=== PATIENT | female | born 1965 | race Caucasian/White ===

== ENCOUNTER 2020-03-19 16:27 | Outpatient (REF) | payer BC, SELFPAY ==
--- NOTE | 2020-03-19 16:31 | MM_ITS ---
EXAMINATION: MM SCREENING DIGITAL BREAST TOMOSYNTHESIS, BILATERAL CLINICAL INFORMATION: Screening. Asymptomatic. Family history breast cancer (sister). The lifetime risk of breast cancer based on the Tyrer-Cuzick Model is 5%. COMPARISON: Mammography: 06/17/2014, 06/03/2007 TECHNIQUE: Digital breast tomosynthesis is performed in both the craniocaudal and mediolateral oblique views along with computer-aided detection (CAD). Synthesized 2D images are generated from the tomosynthesis. FINDINGS: There are scattered areas of fibroglandular density (ACR BI-RADS breast composition Category b). There are no significant masses, abnormal calcifications, or other abnormalities. There is fine fibronodular parenchymal pattern similar to prior studies. Again, there are scattered punctate calcifications in each breast. No developing density. No significant changes. MM/MM tomosynthesis screening BI IMPRESSION: No significant changes from prior study. ASSESSMENT: BI-RADS 2: Benign RECOMMENDATION: Routine annual mammography screening. This patient's information was entered into a reminder system with a target due date for their next mammogram.
== END 2020-03-19 16:28 | disposition home or self-care (01) ==
LOC: HO.MAMMO 16:27
PROVIDERS: PCP Internal Medicine; Visit Provider Internal Medicine
DX: Z12.31 Encounter for screening mammogram for malignant neoplasm of breast (principal)
CPT/HCPCS: 77063; 77067

== ENCOUNTER → 2021-03-24 10:54 | Outpatient (BNVA) | payer BC, SELFPAY | PROVIDERS: PCP Internal Medicine; Visit Provider Advanced Practice Midwife ==

== ENCOUNTER 2022-04-18 12:08 | Outpatient (REF) | payer BC, SELFPAY ==
--- NOTE | ~2022-04-18 | XR_ITS ---
EXAMINATION: XR SHOULDER, RIGHT CLINICAL INFORMATION: Shoulder pain COMPARISON: None TECHNIQUE: AP external rotation, Grashey, scapular Y, and axillary views of the right shoulder. FINDINGS: No acute fracture or dislocation. Small marginal osteophytes along the glenoid. Alignment of the chromic clavicular joint intact. Soft tissues unremarkable. XR/XR shoulder RT min 2V IMPRESSION: No acute findings. Small marginal osteophytes along the glenohumeral joint
== END 2022-04-18 12:09 | disposition home or self-care (01) ==
LOC: HO.XRAY 12:08
PROVIDERS: PCP Internal Medicine; Visit Provider Internal Medicine
DX: M25.511 Pain in right shoulder (principal)
CPT/HCPCS: 73030

== ENCOUNTER 2022-04-21 06:15 | Outpatient (REF) | payer BC, SELFPAY ==
[2022-04-21 06:19] LABS: MANUAL DIFF FLAG NO
[2022-04-21 07:41] LABS: Basophils Percent Auto 0.5 % (0-2); Eosinophils Absolute Auto 0.1 X10*3/uL (0.0-0.4); Eosinophils Percent Auto 2.1 % (0-4); Hematocrit 41.1 % (37.0-47.0); Hemoglobin 13.6 g/dl (12.0-16.0); Imm Gran Abs Auto 0.02 X10*3/uL (0.00-0.03); Imm Gran Pct Auto 0.3 % (0.0-0.4); Lymphocytes Absolute Auto 1.9 X10*3/uL (1.2-4.9); Lymphocytes Percent Auto 31.6 % (20-40); Mean Corpuscular HGB Conc 33.1 g/dl (31.0-35.0); Mean Corpuscular Volume 93.6 fL (80.0-98.0); Mean Platelet Volume 10.2 fL (9.4-12.3); Monocytes Absolute Auto 0.6 X10*3/uL (0.1-1.2); Monocytes Percent Auto 9.3 % (2-11); Neutrophils Absolute Auto 3.4 x10*3/uL (2.0-8.3); Neutrophils Percent Auto 56.2 % (45-73); Platelet Count 256 X10*3/uL (160-400); Red Blood Count 4.39 X10*6/uL (4.20-5.50); Red Cell Distribution Width 12.8 % (11.0-16.0); White Blood Count 6.1 X10*3/uL (4.8-10.8)
[2022-04-21 08:08] LABS: Alanine Aminotransferase 37 U/L (0-31); Albumin Level 4.2 g/dL (3.5-5.0); Alkaline Phosphatase 50 U/L (39-117); Anion Gap 11 (12-20); Aspartate Amino Transferase 27 U/L (5-31); Bilirubin Total 0.5 mg/dL (0.0-1.0); Blood Urea Nitrogen 11 mg/dL (9-16); Calcium 9.6 mg/dL (8.4-10.2); Carbon Dioxide 28 mmol/L (22-29); Chloride 102 mmol/L (96-108); Cholesterol 218 mg/dL; Estimated Glomerular Filt Rate > 60; Glucose Fasting 86 mg/dL (60-99); HDL Cholesterol 65 mg/dL; LDL Cholesterol Calculated 141 mg/dl; Sodium 137 mmol/L (135-145); Total Protein 6.9 g/dL (6.5-8.0); Triglycerides 62 mg/dL
== END 2022-04-21 06:16 | disposition home or self-care (01) ==
LOC: HO.LAB 06:15
PROVIDERS: PCP Internal Medicine; Visit Provider Internal Medicine
DX: Z00.00 Encounter for general adult medical examination without abnormal findings (principal); M25.511 Pain in right shoulder
CPT/HCPCS: 36415; 80053; 80061; 85025

== ENCOUNTER 2022-05-11 08:30 | Outpatient (REF) | payer BC, SELFPAY ==
--- NOTE | ~2022-05-11 | MM_ITS ---
EXAMINATION: BONE DENSITOMETRY CLINICAL INDICATION: Menopause. COMPARISON: This is the patient's baseline examination. TECHNIQUE: Using a Volley DXA System (software version: 13.1) manufactured by [employer], dual-energy x-ray absorptiometry was performed of the lumbar spine and left hip. The images are of good technical quality. Summary results are attached. FINDINGS: AP SPINE L1-L4: BMD 0.892 g/cm2, Z-score -0.9, T-score -2.4, osteopenia. LEFT FEMUR, NECK: BMD 0.672 g/cm2, Z-score -1.2, T-score -2.6, osteoporosis. LEFT FEMUR, TOTAL: BMD 0.730 g/cm2, Z-score -1.1, T-score -2.2, osteopenia. IDENTIFIED RISK FACTORS: Menopause. HISTORY OF FRACTURE: None listed. MEDICATIONS: None listed. MM/XR DEXA axial skeleton IMPRESSION: 1. DIAGNOSIS: Osteoporosis based on the lowest T-score value of -2.6 in the femoral neck applying World Health Organization criteria. 2. 10-YEAR FRACTURE RISK PREDICTION, FRAX: According to the guidelines, FRAX calculation should only be performed on patients in the osteopenia bone density category. Therefore, FRAX was not performed on this patient. 3. Treatment Recommendations: NOF guidelines recommend consideration for treatment in postmenopausal women and men age 50 and older presenting with the following: -A hip or vertebral (clinical or morphometric) fracture. -T-score less than or equal to -2.5 at the femoral neck or spine after appropriate evaluation to exclude secondary causes. -Low bone mass at the hip or spine and a 10-year fracture probability by FRAX of greater than or equal to 3% for hip fracture or greater than or equal to 20% for major osteoporotic fracture based on the [place] adapted WHO algorithm. 4. Other Recommendations: All treatment decisions require clinical judgment and consideration of individual patient factors, including patient preferences, comorbidities, previous drug use, risk factors not captured in the FRAX model (e.g. frailty, falls, vitamin D deficiency, increased bone turnover, interval significant decline in bone density) and possible under or overestimation of fracture risk by FRAX. Additional medical evaluation for secondary cause of low bone mineral density may be appropriate. FUTURE SCAN RECOMMENDATION: People with diagnosed cases of osteoporosis or at high risk for fracture should have regular bone mineral density tests. For patients eligible for Medicare, routine testing is allowed once every 2 years. The testing frequency can be increased to one year for patients who have rapidly progressing disease, those who are receiving or discontinuing medical therapy to restore bone mass, or have additional risk factors.
== END 2022-05-11 08:31 | disposition home or self-care (01) ==
LOC: HO.MAMMO 08:30
PROVIDERS: PCP Internal Medicine; Visit Provider Internal Medicine
DX: Z12.31 Encounter for screening mammogram for malignant neoplasm of breast (principal); Z13.820 Encounter for screening for osteoporosis; Z78.0 Asymptomatic menopausal state
CPT/HCPCS: 77063; 77067; 77080

== ENCOUNTER → 2022-06-06 09:16 | Outpatient (BNVA) | payer BC, SELFPAY | PROVIDERS: PCP Internal Medicine; Visit Provider Physician Assistant | DX: M75.101 Unspecified rotator cuff tear or rupture of right shoulder, not specified as traumatic (principal) ==

== ENCOUNTER 2022-07-26 10:55 | Outpatient (RCR) | payer BC, SELFPAY ==
--- NOTE | 2022-07-26 12:05 | MHC.PT.EP ---
[facility] [place] Office [place] Office [place] Office [address] [phone] F: [phone] F: [phone] F: [phone] F: [phone] Physical Therapy Plan of Care Date of Evaluation: Date of Surgery: Diagnosis: Pain in R shoulder Assessment: Patient is a 57 year old R handed female who presents with s/s consistent with R shoulder pain. 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 Patient past medical history is otherwise unremarkable. Current impairments include pain, posture, ROM, strength, activity tolerance and functional mobility. Functional limitations include decreased ability to reach, lift, carry, pain, push, pull and sleep. Patient is motivated with good rehab potential. Skilled PT will address impairments and functional limitations in order to achieve goals. Frequency and Duration: The patient will be seen 1x/week for 5 weeks Short Term Goals: I with HEP - 2 weeks AROM flexion and scaption 120 - 3 weeks Normal Scapulohumeral rhythm - 3 weeks Normal Scapulothoracic mobility - 3 weeks Snf Goals: AROM flexion and scaption 140 - 5 weeks Strength 4+/5 - 5 weeks Restore PLOF pain free - 5 weeks Pain free sleep - 5 weeks Treatment Plan: Modalities to reduce pain, spasms and effusion. Manual therapy to restore motion and function. Therapeutic exercise to improve strength and flexibility. Neuromuscular re-education for posture and balance. Therapeutic activities to return to functional activities of daily living. Electronically signed by: Robson Arnold PT Please sign and return to therapist. Thank you for your referral.
--- NOTE | 2022-10-31 07:14 | MHC.PT.DC ---
[facility] [place] Office [place] Office [place] Office [address] Vidal 140 [facility] [phone] F: [phone] F: [phone] F: [phone] F: [phone] Physical Therapy Discharge Report Diagnosis: Pain in R shoulder Date of Surgery: Date of Evaluation: 07/26/22 Date of Discharge: 08/02/22 Treatments to Date: 1 Cancellations to Date: No Shows to Date: Discharge Status: Patient Elected to Stop Discharge Summary: Patient is a 57 year old R handed female who presents with s/s consistent with R shoulder pain. 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 Patient past medical history is otherwise unremarkable. Current impairments include pain, posture, ROM, strength, activity tolerance and functional mobility. Functional limitations include decreased ability to reach, lift, carry, pain, push, pull and sleep. Patient is motivated with good rehab potential. Skilled PT will address impairments and functional limitations in order to achieve goals. Electronically signed by: Robson Arnold, PT Please sign and return to therapist. Thank you for your referral.
== END 2022-10-31 07:14 | disposition home or self-care (01) ==
LOC: HO.PTCHIC 10:55
PROVIDERS: PCP Internal Medicine; Visit Provider Physician Assistant
DX: M75.101 Unspecified rotator cuff tear or rupture of right shoulder, not specified as traumatic (principal)
CPT/HCPCS: 97110; 97161

== ENCOUNTER 2022-08-08 14:41 | Outpatient (REF) | payer BC, SELFPAY ==
[2022-08-08 14:50] LABS: MANUAL DIFF FLAG NO
[2022-08-08 15:11] LABS: Basophils Percent Auto 0.5 % (0-2); Eosinophils Absolute Auto 0.1 X10*3/uL (0.0-0.4); Eosinophils Percent Auto 0.9 % (0-4); Hematocrit 43.1 % (37.0-47.0); Hemoglobin 14.4 g/dl (12.0-16.0); Imm Gran Abs Auto 0.01 X10*3/uL (0.00-0.03); Imm Gran Pct Auto 0.2 % (0.0-0.4); Lymphocytes Absolute Auto 1.7 X10*3/uL (1.2-4.9); Lymphocytes Percent Auto 26.2 % (20-40); Mean Corpuscular HGB Conc 33.4 g/dl (31.0-35.0); Mean Corpuscular Volume 92.7 fL (80.0-98.0); Mean Platelet Volume 10.2 fL (9.4-12.3); Monocytes Absolute Auto 0.5 X10*3/uL (0.1-1.2); Monocytes Percent Auto 7.3 % (2-11); Neutrophils Absolute Auto 4.2 x10*3/uL (2.0-8.3); Neutrophils Percent Auto 64.9 % (45-73); Platelet Count 275 X10*3/uL (160-400); Red Blood Count 4.65 X10*6/uL (4.20-5.50); Red Cell Distribution Width 12.7 % (11.0-16.0); White Blood Count 6.4 X10*3/uL (4.8-10.8)
[2022-08-08 15:46] LABS: Alanine Aminotransferase 30 U/L (0-31); Albumin Level 4.5 g/dL (3.5-5.0); Alkaline Phosphatase 57 U/L (39-117); Aspartate Amino Transferase 24 U/L (5-31); Bilirubin Direct 0.2 mg/dL (0.0-0.5); Bilirubin Total 0.5 mg/dL (0.0-1.0); C Reactive Protein 0.26 mg/dL (< or = 0.50); Lipase 37 U/L (8-78); Total Protein 7.5 g/dL (6.5-8.0)
== END 2022-08-08 14:42 | disposition home or self-care (01) ==
LOC: HO.LAB 14:41
PROVIDERS: PCP Internal Medicine; Visit Provider Internal Medicine
DX: R10.9 Unspecified abdominal pain (principal); K90.9 Intestinal malabsorption, unspecified
CPT/HCPCS: 36415; 80076; 83690; 85025; 86140

== ENCOUNTER 2022-08-11 13:10 | Outpatient (REF) | payer BC, SELFPAY ==
--- NOTE | ~2022-08-11 | CT_ITS ---
EXAMINATION: CT ABDOMEN AND PELVIS WITHOUT CONTRAST CLINICAL INFORMATION: Steatorrhea, epigastric pain. COMPARISON: CT abdomen/pelvis 11/14/2013. TECHNIQUE: Multidetector volumetric imaging was performed from the superior aspect of the liver through the pubic symphysis. Sagittal and coronal reformatted images were obtained on the technologist's workstation. This CT examination was performed using dose optimization techniques as appropriate, variously including the following: *Automated exposure control *Adjustment of mA and/or kV according to patient size (this includes techniques or standardized protocols for targeted exams where dose is matched to indication/reason for exam; i.e. extremities or head) *Use of iterative reconstruction technique DLP: 300 mGy-cm FINDINGS: LUNG BASES: No focal consolidation or pleural effusion. LIVER, GALLBLADDER, AND BILIARY TREE: The liver measures 17 cm craniocaudally and demonstrates decreased attenuation suggesting hepatic steatosis. No discrete focal liver lesions are noted in this limited noncontrast examination. Normal appearance of the gallbladder. No biliary ductal dilatation. PANCREAS: Limited noncontrast examination without discrete abnormalities. SPLEEN: Limited noncontrast examination without discrete abnormalities. ADRENAL GLANDS: No adrenal nodule or mass. KIDNEYS AND URETERS: Limited noncontrast examination. There is mild bilateral hydroureteronephrosis up to the level of the uterus. No nephrolithiasis. A couple of water density cortical cysts are noted bilaterally, for which no imaging follow-up is recommended. No perinephric fat stranding. BLADDER: Displaced anteriorly by enlarged uterus. No significant perivesical fat stranding or intraluminal calculi. GASTROINTESTINAL TRACT: Nonspecific gastric distention with heterogeneous debris. No abnormally dilated loops of the small bowel. No pericolonic inflammatory changes to suspect acute colitis or diverticulitis. No evidence of bowel obstruction. The appendix is dilated measuring up to 0.9 cm in diameter but with no significant surrounding inflammatory changes. No internal calcifications or appendicoliths are noted. ABDOMINAL WALL: No significant hernia is appreciated. LYMPH NODES: Limited noncontrast examination. No pathologically enlarged lymph nodes. VASCULAR: Limited noncontrast examination, abdominal aorta is normal in caliber. PELVIC VISCERA: Abnormal appearance of the uterus which is enlarged with loss of differentiation between the endometrial cavity, junctional zone and myometrium. The ovaries are not well delineated. No free fluid. OSSEOUS STRUCTURES: No acute or aggressive appearing osseous abnormalities. CT/CT abdomen pelvis wo IV con IMPRESSION: Abnormal appearance of the uterus which is enlarged with loss of definition of the different tissues, suggesting replacement by an infiltrative disease. Recommend correlation with a pelvic MRI with and without IV contrast, malignancy is not excluded. There is mild bilateral hydronephrosis transitioning at the level of the uterus, likely secondary to mass effect. The appendix is mildly dilated but with no significant surrounding fat stranding or free fluid; differentials include early acute appendicitis, chronic appendicitis or less likely a mucinous tumor in the absence of significant dilatation or associated calcifications. Hepatic steatosis. Nonspecific gastric distention, possibly related with postprandial state, other differentials include gastroparesis and gastric outlet obstruction, correlate clinically. The report will be called to the ordering clinician by a [place] Radiology Physician Ornamental Machine Operator.
== END 2022-08-11 13:11 | disposition home or self-care (01) ==
LOC: HO.CT 13:10
PROVIDERS: Visit Provider Internal Medicine
DX: K90.3 Pancreatic steatorrhea (principal); R10.13 Epigastric pain
CPT/HCPCS: 74176

== ENCOUNTER 2023-05-31 10:13 | Emergency (ER) | payer BC, SELFPAY ==
[2023-05-31 10:18] VITALS: BP 154/74; PULSE 73; RESP 19; TEMP 36.6; O2SAT 100; BMI 21.9
[2023-05-31 10:37] LABS: MANUAL DIFF FLAG NO
[2023-05-31 10:40] LABS: Basophils Percent Auto 0.4 % (0-2); Eosinophils Absolute Auto 0.1 X10*3/uL (0.0-0.4); Eosinophils Percent Auto 1.7 % (0-4); Hematocrit 41.2 % (37.0-47.0); Hemoglobin 13.9 g/dl (12.0-16.0); Imm Gran Abs Auto 0.01 X10*3/uL (0.00-0.03); Imm Gran Pct Auto 0.2 % (0.0-0.4); Lymphocytes Absolute Auto 1.5 X10*3/uL (1.2-4.9); Lymphocytes Percent Auto 27.6 % (20-40); Mean Corpuscular HGB Conc 33.7 g/dl (31.0-35.0); Mean Corpuscular Hemoglobin 31.5 pg (27.0-33.0); Mean Corpuscular Volume 93.4 fL (80.0-98.0); Mean Platelet Volume 9.5 fL (9.4-12.3); Monocytes Absolute Auto 0.5 X10*3/uL (0.1-1.2); Monocytes Percent Auto 9.4 % (2-11); Neutrophils Absolute Auto 3.3 x10*3/uL (2.0-8.3); Neutrophils Percent Auto 60.7 % (45-73); Platelet Count 255 X10*3/uL (160-400); Red Blood Count 4.41 X10*6/uL (4.20-5.50); Red Cell Distribution Width 12.9 % (11.0-16.0); White Blood Count 5.4 X10*3/uL (4.8-10.8)
[2023-05-31 10:55] LABS: Anion Gap 12 (12-20); Blood Urea Nitrogen 9 mg/dL (9-16); Calcium 9.1 mg/dL (8.4-10.2); Carbon Dioxide 28 mmol/L (22-29); Chloride 102 mmol/L (96-108); Estimated Glomerular Filt Rate > 60; Glucose Random 108 mg/dL (60-115); Potassium 4.2 mmol/L (3.3-5.1); Sodium 138 mmol/L (135-145)
--- NOTE | 2023-05-31 12:01 | ED_ITS ---
HPI - General Adult General Chief complaint: General Medical Stated complaint: lightheaded shaking Time Seen by Provider: 05/31/23 11:40 Source: patient and family () Mode of arrival: ambulatory Limitations: no limitations History of Present Illness HPI narrative: 58 year old female with no significant pmhx presents to the ED today for evaluation of facial numbness and tingling in finger tips beginning acutely this morning. Reports waking up with a headache at 0700 this morning. A short while later began to have numbness/tingling to bilateral hands. Endorses feeling shaky inside. Denies hyperventilating. Admits she felt anxious however has never had an anxiety attack before, prompting her to come to the ED for further evaluation. States her headache has improved with Motrin. Her symptoms have completely resolved. Upon being triaged and seeing that her vitals were wnl, she states she wanted to leave the ED as she was no longer symptomatic however agreed to stay for evaluation. She has no complaints at present. Denies fever, headache, dizziness, vision changes, chest pain, SOB, dyspnea, n/v. Related Data Home Medications Medication Instructions Recorded Confirmed No Known Home Meds 03/24/21 03/24/21 Allergies Allergy/AdvReac Type Severity Reaction Status Date / Time No Known Allergies Allergy Verified 05/31/23 10:15 Review of Systems 2 Review of Systems: Constitutional: No fever, chills, fatigue, night sweats, weight changes ENT/Mouth: No ear pain, hearing loss, nasal congestion, sinus pain, rhinorrhea, sore throat Eyes: No eye pain, swelling, redness, vision changes, discharge Cardio: No chest pain, palpitations, LANDON, orthopnea, peripheral edema Pulm: No SOB, cough, sputum, wheezing, dyspnea, hemoptysis GI: No nausea, vomiting, hematemesis, abdominal pain, diarrhea, constipation, hematochezia, melena : No irregular bleeding, dysuria, frequency, urgency, hesitancy, hematuria, flank pain, urinary flow changes, urinary incontinence or retention MSK: No back pain, neck pain, joint pain, myalgias Skin: No lesions, rashes Neuro: No weakness, numbness, paresthesias, LOC, dizziness, headache All other systems reviewed and are negative. [facility] Past Medical History Attestation statement: The following information was validated with the patient. Source: old records reviewed and nursing notes reviewed Onset Date is defined in the Problem List Problems that require an onset date and time if occurred within 24 hrs of arrival to the ED Aortic Dissection and Rupture; Neurologic impairment; Cardiopulmonary Arrest; Endotracheal Intubation; Insertion or Replacement of Mechanical Circulatory Assist Device Medical History Uterine fibroid Raynaud disease Surgical History Hx of tonsillectomy Family History Family History Father Hodgkin disease Mother HTN (hypertension) Brother Diabetes Sister Breast cancer Social History Social History Household Members: Spouse Housing: Condominium Alcohol intake: never Patient Tobacco Use Status: Never used Tobacco Advance Directives: No Advance Directives Information Provided: Yes Current occupational status: employed Current occupation: Artist / right hand dominant Sexual orientation: Straight/Heterosexual Gender identity: Female Physical Exam ED Vital Signs: Vital Signs - 24 hr 05/31/23 10:18 05/31/23 12:12 Temperature 98 F 98.2 F Pulse Rate 73 64 Respiratory Rate 19 18 Blood Pressure 154/74 H 103/75 Pulse Oximetry 100 100 Oxygen Delivery Method Room Air Room Air BMI result Body Mass Index 21.9 Vital signs stable Const General: cooperative, healthy appearing, comfortable, no acute distress, alert and awake Nutritional Appearance: average body habitus Orientation/consciousness: patient oriented x3 Limitations: no limitations [facility] Head: Yes normal to inspection and No Acrocyanosis present Ears: hearing grossly normal bilaterally Eyes General: appearance normal, both eyes and all related structures Conjunctivae: conjunctivae normal Sclerae: sclerae normal Pupils: Equal, round and reactive pupils present Neck Neck: Yes normal visual inspection Chest Chest palpation & inspection: normal inspection of the chest Resp Effort & Inspection: normal respiratory effort, able to speak in complete sentences and no respiratory distress Auscultation: clear to auscultation bilaterally Cardio Rate: regular rate Rhythm: regular rhythm Peripheral pulses: radial pulses present Skin General skin exam: no rashes or lesions noted Neuro General: patient oriented x3, gait normal and moves all extremities Cranial nerves: Yes Equal, round and reactive pupils present Motor exam (neuro): 5/5 motor strength present throughout and Pronator motor function not present Extrem General: Yes normal to inspection Course Course Course Narrative: CBC without leukocytosis or anemia. Chemistry without acute electrolyte abnormality requiring intervention. Vitals are stable. Patient's symptoms may be consistent with an anxiety attack. Given unremarkable workup and resolution of symptoms, I feel comfortable discharging patient home with strict return precautions. Patient has remained stable throughout ED visit today. All questions answered at this time. Patient is agreeable with disposition and stable for discharge. Medical Decision Making Medical Decision Making [facility] Narrative: 58 year old female with no significant pmhx presents to the ED today for evaluation of facial numbness and tingling in finger tips beginning acutely this morning. Patient initially hypertensive to 154/74, now normalized. Vitals wnl. RRR. Lungs cta b/l. Exam nonfocal. Negative phalen, tinel. Clinical suspicion for headache, migraine, anxiety, electrolyte abnormality, anemia, carpal tunnel. Unlikely acs, arrhythmia, PE, cervical radiculopathy, cva/tia. Plan for labs and re-evaluation. Differential Diagnosis Differential Diagnoses: The differential diagnosis associated with the presentation includes as above. Admission/Observation not indicated. Lab Data [facility] Lab Attestation statement: I reviewed the patient's lab results. as above. 05/31/23 10:33 05/31/23 10:33 Labs: Lab Results 05/31/23 Range/Units 10:33 WBC 5.4 (4.8-10.8) X10*3/uL RBC 4.41 (4.20-5.50) X10*6/uL Hgb 13.9 (12.0-16.0) g/dl Hct 41.2 (37.0-47.0) % MCV 93.4 (80.0-98.0) fL MCH 31.5 (27.0-33.0) pg MCHC 33.7 (31.0-35.0) g/dl RDW 12.9 (11.0-16.0) % Plt Count 255 (160-400) X10*3/uL MPV 9.5 (9.4-12.3) fL Immature Gran % (Auto) 0.2 (0.0-0.4) % Neut % (Auto) 60.7 (45-73) % Lymph % (Auto) 27.6 (20-40) % [place] % (Auto) 9.4 (2-11) % Eos % (Auto) 1.7 (0-4) % Baso % (Auto) 0.4 (0-2) % Lymph # (Auto) 1.5 (1.2-4.9) X10*3/uL [place] # (Auto) 0.5 (0.1-1.2) X10*3/uL Eos # (Auto) 0.1 (0.0-0.4) X10*3/uL Baso # (Auto) 0.0 (0.0-0.2) X10*3/uL Abs Immat Gran (auto) 0.01 (0.00-0.03) X10*3/uL Absolute Neuts (auto) 3.3 (2.0-8.3) x10*3/uL Absolute Nucleated RBC 0.000 (0.0-0.012) X10*3/uL Nucleated RBC % (auto) 0.0 (0.0-0.2) /100WBC Sodium 138 (135-145) mmol/L Potassium 4.2 (3.3-5.1) mmol/L Chloride 102 (96-108) mmol/L Carbon Dioxide 28 (22-29) mmol/L Anion Gap 12 (12-20) BUN 9 (9-16) mg/dL Creatinine 0.66 (0.5-1.4) mg/dL Estim Creat Clear Calc 75.0 Estimated GFR > 60 Random Glucose 108 (60-115) mg/dL Calcium 9.1 (8.4-10.2) mg/dL Independent Historian Clinical information obtained from an independent historian. History obtained from or confirmed by: Spouse () External Record Review External record reviewed: Inpatient record Prescription Management I considered prescription management with: Pain Medication Critical Care Time Critical Care Time Critical Care Time: No Discharge Plan Discharge Clinical Impression: Anxiety attack Patient Disposition: Home, Self-Care Instructions: Anxiety (ED) Additional Instructions: Your labs today were normal. Your symptoms are likely due to an anxiety attack. Please follow-up with your primary care provider as needed. If symptoms return or worsen, please return to the emergency department. In the case of an emergency call 911. Prescriptions: No Action No Known Home Meds Referrals: Petros Francis MD [Primary Care Provider] - Interventions: ED Discharge Assessment Last Done: 05/31/23 12:13 Discharge Date/Time: 05/31/23 12:14
[2023-05-31 12:12] VITALS: BP 103/75; PULSE 64; RESP 18; TEMP 36.8; O2SAT 100
== END 2023-05-31 12:14 | disposition home or self-care (01) ==
PROVIDERS: Emergency Provider Emergency Medicine; PCP Internal Medicine
DX: F41.9 Anxiety disorder, unspecified (principal); F41.0 Panic disorder [episodic paroxysmal anxiety]; R20.2 Paresthesia of skin
CPT/HCPCS: 36415; 80048; 85025; 99283